=== PATIENT | male | born 1945 | race Two or more races ===

== ENCOUNTER 2021-03-10 06:54 | Day surgery (SDC) | payer OTHER ==
[~2021-03-10 06:54] MED LIST: AMLO PO; AVAPRO300 MG PO
[2021-03-10] MEDS ORDERED: PERCOCET 5-3251 EACH PO (11:45)
== END 2021-03-10 19:25 | disposition home or self-care (01) ==
LOC: CIR.AMB 06:54
PROVIDERS: ATTEND Surgery
DX: K64.8 Other hemorrhoids (principal); K64.4 Residual hemorrhoidal skin tags; K64.1 Second degree hemorrhoids; Z20.822 Contact with and (suspected) exposure to COVID-19